=== PATIENT | male | born 1940 | race Caucasian/White ===

== ENCOUNTER 2019-02-27 08:18 | Day surgery (SDC) | payer MEDICARE ==
[~2019-02-27] VITALS: Ht 170.2 cm; Wt 79.0 kg
[~2019-02-27 08:18] MED LIST: ASCO500; Advil200 M1; LISI20; MELATONIN 10 M1 EACH; OMEP20ER; ROPI.25; ROSU5; UBID10; VITAMIN D-32000 UNIT
[2019-02-27] MEDS ORDERED: IRON236 MG (08:53)
--- NOTE | 2019-02-27 11:21 | NUR ---
02/27/19 1120 Giana Diop PT RESTING COMFORTABLY, WAITING FOR DIAL-A-RIDE. PT IN RECLINER, EATING COOKIES & SIPPING JUICE. DENIES SORE THROAT, PAIN OR ANY NEEDS AT THIS TIME.
== END 2019-02-27 11:15 | disposition home or self-care (01) ==
LOC: ORSCSDS 08:18
PROVIDERS: Student in an Organized Health Care Education/Training Program
PROC: 0DB48ZX Excision of Esophagogastric Junction, Via Natural or Artificial Opening Endoscopic, Diagnostic (ICD-10-PCS; principal; 2019-02-27 10:00)
DX: K22.70 Barrett's esophagus without dysplasia (principal); K21.9 Gastro-esophageal reflux disease without esophagitis; K44.9 Diaphragmatic hernia without obstruction or gangrene; I10 Essential (primary) hypertension; Z79.899 Other long term (current) drug therapy
CPT/HCPCS: 88305; J2250; J2704; J7120

== ENCOUNTER 2023-09-22 13:09 | Emergency (ER) | payer MEDICARE ==
[~2023-09-22] VITALS: Ht 167.6 cm; Wt 70.8 kg
[~2023-09-22 13:09] MED LIST changes: +ACET325; +Aspir 8181 MG; +CENTRUM SILVER1 EAC2 PO; +FINA5; +IRON236 MG; +MELO7.5; +ROPI.25 PO
[2023-09-22] MEDS ORDERED: Famotidine 10 MG/ML 2ML Vial IV ONE (14:15)
[2023-09-22] MEDS ORDERED: MethylPREDNISolone Sod Succ 125 MG Vial IV ONE (14:15)
[2023-09-22] MEDS ORDERED: DiphenhydrAMINE HCl 50 MG/ML 1ML Vial IV ONE (14:15)
[2023-09-22 14:31] LABS: BASOPHILS ABSOLUTE AUTO 0.02 K/mm3 (0.00-0.23); BASOPHILS PERCENT AUTO 0 % (0-2); EOSINOPHILS ABSOLUTE AUTO 0.03 K/mm3 (0.00-0.68); EOSINOPHILS PERCENT AUTO 0 % (0-6); Hematocrit 45.5 % (37.0-53.0); Hemoglobin 15.6 g/dL (13.5-17.5); IMMATURE GRAN ABSOLUTE AUTO 0.06 K/mm3 (0.00-0.10); IMMATURE GRAN PERCENT AUTO 0 % (0-1); LYMPHOCYTES ABSOLUTE AUTO 1.47 K/mm3 (0.84-5.20); LYMPHOCYTES PERCENT AUTO 9 % (21-46); MONOCYTES ABSOLUTE AUTO 0.73 K/mm3 (0.16-1.47); MONOCYTES PERCENT AUTO 5 % (4-13); Mean Corpuscular HGB 29.3 pg (26.0-34.0); Mean Corpuscular HGB Conc 34.3 g/dL (31.5-36.5); Mean Corpuscular Volume 86 fL (80-100); Mean Platelet Volume 9.2 fL (9.1-12.4); NEUTROPHILS ABSOLUTE AUTO 13.77 K/mm3 (1.96-9.15); NEUTROPHILS PERCENT AUTO 86 % (41-73); Platelet Count 380 K/mm3 (150-400); RDW Coefficient Variation 15.9 % (11.7-14.2); RDW Standard Deviation 49.8 fL (35.1-46.3); Red Blood Cell Count 5.32 M/mm3 (4.30-5.90); White Blood Cell Count 16.08 K/mm3 (4.00-11.30)
[2023-09-22 14:53] LABS: Albumin, Blood 3.4 g/dL (3.4-5.0); Albumin/Globulin Ratio 1.3 (0.8-1.8); Bilirubin, Total 0.5 mg/dL (0.1-1.0); Calcium, Blood 8.4 mg/dL (8.5-10.1); Creatinine, Blood 0.82 mg/dL (0.60-1.20); Globulin, Blood 2.7 g/dL (2.2-4.0); Potassium, Blood 4.1 mmol/L (3.5-5.5); Total Protein, Blood 6.1 g/dL (6.4-8.2)
[2023-09-22 17:00] VITALS: BP 114/89
== END 2023-09-22 17:09 | disposition home or self-care (01) ==
LOC: ER 13:09
PROVIDERS: Emergency Medicine
DX: T67.5XXA Heat exhaustion, unspecified, initial encounter (principal); X30.XXXA Exposure to excessive natural heat, initial encounter; R55 Syncope and collapse; S51.012A Laceration without foreign body of left elbow, initial encounter; W18.30XA Fall on same level, unspecified, initial encounter; R07.9 Chest pain, unspecified; Z79.899 Other long term (current) drug therapy; Z79.82 Long term (current) use of aspirin; Z87.891 Personal history of nicotine dependence
CPT/HCPCS: 71045; 80053; 83880; 84484; 85025; 93005; 93010; 96374; 96375; 99285-25; J1200; J2919